=== PATIENT | female | born 1955 | race Two or more races ===

== ENCOUNTER 2019-01-26 13:19 | Outpatient (CLI) | payer OTHER | END 2019-01-26 13:23 | disposition home or self-care (01) | LOC: RAD 13:19 | DX: M25.462 Effusion, left knee (principal) ==

== ENCOUNTER 2019-01-31 10:16 | Outpatient (CLI) | payer OTHER | END 2019-01-31 10:19 | disposition home or self-care (01) | LOC: NUCLEAR 10:16 | DX: M81.0 Age-related osteoporosis without current pathological fracture (principal) ==

== ENCOUNTER 2019-01-31 11:39 | Outpatient (CLI) | payer OTHER | END 2019-01-31 11:58 | disposition home or self-care (01) | LOC: MAMO-SONO 11:39 | DX: Z12.31 Encounter for screening mammogram for malignant neoplasm of breast (principal); Z87.898 Personal history of other specified conditions; N60.12 Diffuse cystic mastopathy of left breast; N60.11 Diffuse cystic mastopathy of right breast ==

== ENCOUNTER → 2020-07-06 09:49 | Outpatient (CLI) | payer OTHER | END | disposition home or self-care (01) | LOC: PPH VACUNA 09:49 | PROVIDERS: ATTEND Emergency Medicine Pediatric Emergency Medicine | DX: Z23 Encounter for immunization (principal) ==

== ENCOUNTER → 2020-07-27 | Outpatient (CLI) | payer OTHER | END | disposition home or self-care (01) | LOC: PPH VACUNA 02:09 | PROVIDERS: ATTEND Emergency Medicine Pediatric Emergency Medicine | DX: Z23 Encounter for immunization (principal) ==

== ENCOUNTER → 2020-09-19 | Outpatient (CLI) | payer OTHER ==
[~2020-09-19] MED LIST: CIPRO500 MG PO; INTESTINEX680 M1 PO; LIPITOR20 MG; METRONIDAZOLE500 MG PO; PEPCID AC20 MG; XARELTO20 MG; ZESTRIL2.5 MG
== END | disposition home or self-care (01) ==
LOC: RAD 11:41
PROVIDERS: ATTEND Radiology Diagnostic Radiology
DX: M25.561 Pain in right knee (principal)

== ENCOUNTER 2020-09-24 11:08 | Emergency (ER) | payer OTHER ==
[~2020-09-24] VITALS: Ht 152.4 cm; Wt 71.2 kg
[2020-09-24] MEDS ORDERED: ZESTRIL2.5 MG (11:33)
[2020-09-24] MEDS ORDERED: XARELTO20 MG (11:34)
[2020-09-24] MEDS ORDERED: LIPITOR20 MG (11:34)
[2020-09-24] MEDS ORDERED: PEPCID AC20 MG (11:34)
[2020-09-24] MEDS ORDERED: INTESTINEX680 M1 PO (17:55)
[2020-09-24] MEDS ORDERED: CIPRO500 MG PO (17:55)
[2020-09-24] MEDS ORDERED: METRONIDAZOLE500 MG PO (17:55)
== END 2020-09-24 18:04 | disposition home or self-care (01) ==
LOC: ER 11:08
DX: K57.32 Diverticulitis of large intestine without perforation or abscess without bleeding (principal); R10.32 Left lower quadrant pain

== ENCOUNTER → 2021-11-04 | Outpatient (CLI) | payer OTHER | END | disposition home or self-care (01) | LOC: PPH VACUNA 08:00 | PROVIDERS: ATTEND Emergency Medicine Pediatric Emergency Medicine | DX: Z23 Encounter for immunization (principal) ==

== ENCOUNTER 2022-02-24 09:50 | Outpatient (CLI) | payer OTHER | END 2022-02-24 09:56 | disposition home or self-care (01) | LOC: MAMO-SONO 09:50 | PROVIDERS: ATTEND Family Medicine | DX: Z12.31 Encounter for screening mammogram for malignant neoplasm of breast (principal); N60.19 Diffuse cystic mastopathy of unspecified breast ==

== ENCOUNTER 2022-06-24 13:21 | Outpatient (CLI) | payer OTHER | END 2022-06-24 13:31 | disposition home or self-care (01) | LOC: PPH VACUNA 13:21 | PROVIDERS: ATTEND Emergency Medicine Pediatric Emergency Medicine | DX: Z23 Encounter for immunization (principal) ==

== ENCOUNTER 2023-07-01 08:59 | Outpatient (CLI) | payer OTHER | END 2023-07-01 09:09 | disposition home or self-care (01) | LOC: MAMO-SONO 08:59 | PROVIDERS: ATTEND Family Medicine | DX: Z12.31 Encounter for screening mammogram for malignant neoplasm of breast (principal); N60.19 Diffuse cystic mastopathy of unspecified breast ==

== ENCOUNTER 2024-01-29 09:56 | Outpatient (CLI) | payer OTHER | END 2024-01-29 10:00 | disposition home or self-care (01) | LOC: SONOGRAMA 09:56 | DX: M25.551 Pain in right hip (principal); M25.552 Pain in left hip ==

== ENCOUNTER 2024-06-21 11:47 | Outpatient (CLI) | payer OTHER ==
[~2024-06-21 11:47] MED LIST changes: +METHOCARBAMOL500 MG PO
== END 2024-06-21 11:50 | disposition home or self-care (01) ==
LOC: RAD 11:47
PROVIDERS: ATTEND Family Medicine
DX: M20.002 Unspecified deformity of left finger(s) (principal); M20.032 Swan-neck deformity of left finger(s)

== ENCOUNTER 2024-07-08 08:59 | Outpatient (CLI) | payer OTHER | END 2024-07-08 09:00 | disposition home or self-care (01) | LOC: NUCLEAR 08:59 | PROVIDERS: ATTEND Family Medicine | DX: M81.0 Age-related osteoporosis without current pathological fracture (principal) ==